=== PATIENT | male | born 1990 | race African-American/Black ===

== ENCOUNTER 2018-05-02 08:13 | Emergency (ER) | payer MEDICAID ==
[~2018-05-02] VITALS: Ht 167.6 cm; Wt 80.0 kg
--- NOTE | 2018-05-02 08:18 | NUR ---
ORIENTED TO ROOM. URINE SPECIMEN CUP GIVEN
--- NOTE | 2018-05-02 08:23 | NUR ---
PA AT BS
[2018-05-02] MEDS ORDERED: ONDANSETRON ODT 4 MG ONE (08:28)
[2018-05-02] MEDS ORDERED: LORazepam 1MG TABLET ONE ×2 (08:28→09:25)
[2018-05-02] MEDS ORDERED: LORazepam 1MG TABLET PO ONE ×2 (08:30→09:30)
[2018-05-02] MEDS ORDERED: ONDANSETRON ODT 4 MG PO ONE (08:30)
[2018-05-02 08:48] LABS: BASOPHILS # (AUTO) 0.04 x10^3/uL (0-0.1); BASOPHILS % (AUTO) 0 % (0-1); EOSINOPHILS # (AUTO) 0.06 x10^3/uL (0-0.4); EOSINOPHILS % (AUTO) 1 % (1-7); LYMPHOCYTES # (AUTO) 1.93 x10^3/uL (1-3.4); LYMPHOCYTES % (AUTO) 19 % (22-44); MD NO; MEAN CORPUSCULAR HEMOGLOBIN 26.9 pg (27.5-34.5); MEAN CORPUSCULAR HGB CONC 33.2 g/dL (33.2-36.2); MEAN CORPUSCULAR VOLUME 81.1 fL (81-97); MEAN PLATELET VOLUME 8.8 fL (7.4-10.4); MONOCYTES # (AUTO) 1.08 x10^3/uL (0.2-0.8); MONOCYTES % (AUTO) 11 % (2-9); NEUTROPHILS # (AUTO) 6.85 x10^3/uL (1.8-6.8); NEUTROPHILS % (AUTO) 69 % (42-75); PLATELET COUNT 177 x10^3/uL (130-400); RED BLOOD COUNT 5.29 x10^6/uL (4.38-5.82); RED CELL DISTRIBUTION WIDTH 14.8 % (9.4-14.8)
--- NOTE | 2018-05-02 08:48 | NUR ---
PT BACK FROM XRAY
[2018-05-02 08:59] LABS: ALANINE AMINOTRANSFERASE 87 U/L (12-78); ALBUMIN 3.5 g/dL (3.4-5.0); ANION GAP 8 mmol/L (5-15); CALCIUM 8.1 mg/dL (8.5-10.1); CHLORIDE 100 mmol/L (98-107)
[2018-05-02 09:01] LABS: ALKALINE PHOSPHATASE 140 U/L (45-117); CREATININE 0.82 mg/dL (0.7-1.3); TOTAL PROTEIN 7.8 g/dL (6.4-8.2)
[2018-05-02 10:18] VITALS: BP 154/103
== END 2018-05-02 10:36 | disposition home or self-care (01) ==
LOC: ED 09:00
DX: F41.9 Anxiety disorder, unspecified (principal); K70.10 Alcoholic hepatitis without ascites
CPT/HCPCS: 36415; 71046; 76700; 80053; 83690; 85025; 93005; 99284; Q0162